=== PATIENT | female | born 1975 | race Caucasian/White ===

== ENCOUNTER → 2018-09-27 | Outpatient (CLI) | payer OTHER | LOC: FIMAGING 09:26 | PROVIDERS: ATTEND Physician Assistant | DX: R93.89 Abnormal findings on diagnostic imaging of other specified body structures (principal); N83.291 Other ovarian cyst, right side ==

== ENCOUNTER → 2018-11-08 | Outpatient (CLI) | payer OTHER | LOC: FIMAGING 09:26 | PROVIDERS: ATTEND Physician Assistant | DX: R92.8 Other abnormal and inconclusive findings on diagnostic imaging of breast (principal); N64.4 Mastodynia; N92.0 Excessive and frequent menstruation with regular cycle ==